=== PATIENT | female | born 1990 | race Caucasian/White ===

== ENCOUNTER 2021-07-21 10:51 | Emergency (ER) | payer OTHER ==
[2021-07-21 10:58] VITALS: BP 119/79; PULSE 68; TEMP 97.8; BMI 32.5
[2021-07-21] MEDS ORDERED: KETOROLAC TROMETHAMINE 30 MG/1 ML VIAL IM ONE (11:35)
[2021-07-21] MEDS ORDERED: diazePAM 5 MG TABLET PO ONE (11:36)
[2021-07-21] MEDS ORDERED: KETOROLAC TROMETHAMINE 30 MG/1 ML VIAL ONE (11:39)
[2021-07-21] MEDS ORDERED: diazePAM 5 MG TABLET ONE (11:39)
== END 2021-07-21 12:05 | disposition home or self-care (01) ==
LOC: JERFT 10:51
PROC: 3E0234Z Introduction of Serum, Toxoid and Vaccine into Muscle, Percutaneous Approach (ICD-10-PCS; principal; 2021-07-21)
DX: M54.5 Low back pain (principal); M54.2 Cervicalgia; V49.50XA Passenger injured in collision with unspecified motor vehicles in traffic accident, initial encounter
CPT/HCPCS: 72070-TC-FY; 99284-25